=== PATIENT | female | born 1985 | race Caucasian/White ===

== ENCOUNTER 2019-10-23 21:01 | Inpatient (IN) | payer OTHER ==
[~2019-10-23] VITALS: Ht 162.6 cm; Wt 57.8 kg
[2019-10-23 22:09] LABS: ABSOLUTE NEUTROPHILS 12.3 thou/uL (1.4-8.2); BASOPHILS 0.5 % (0.0-2.0); EOSINOPHILS 0.1 % (0.0-3.0); HEMATOCRIT 42.7 % (37.0-47.0); HEMOGLOBIN 13.9 gm/dL (12.0-15.0); MCH 31.8 pg (26.0-34.0); MCHC 32.7 g/dL (28.0-37.0); MCV 97.3 fL (80.0-100.0); MONOCYTES 5.9 % (1.0-8.0); PLATELET COUNT 306 thou/uL (150-400); POLYS 80.5 % (36.0-66.0); RBC 4.38 mil/uL (4.20-5.00); RDW 12.8 % (10.5-14.5); WBC 15.3 thou/uL (4.0-11.0)
[2019-10-23 22:17] LABS: ANION GAP 15 mmol/L (7-16); BUN 8 mg/dL (7-18); CALCIUM 9.2 mg/dL (8.5-10.1); CHLORIDE 103 mmol/L (98-107); CO2 22 mmol/L (21-32); GLUCOSE 136 mg/dL (74-106); POTASSIUM 4.5 mmol/L (3.5-5.1); SODIUM 140 mmol/L (136-145)
--- NOTE | 2019-10-23 22:18 | NUR ---
PATIENT INTUABTED 7.0 TUBE, 26 @ TEETH, +COLOR CHANGE, SOUNDS OVER EPIGASTRIC AREA, TUBE REMOVED 2219 - PATIENT INTUBATED 6.5 TUBE, 23CM @ TEETH, +COLOR CHANGE, XRAY CONFIRMED PLACEMENT
[2019-10-23 22:21] LABS: ALBUMIN 4.3 g/dL (3.4-5.0); AMP/METHAMP POSITIVE (Negative); BARBITURATES Negative (Negative); BENZODIAZEPINES Negative (Negative); COCAINE Negative (Negative); DIRECT BILIRUBIN < 0.1 mg/dL (<0.1-0.2); LIPASE 94 U/L (73-393); METHADONE Negative (Negative); OPIATES Negative (Negative); PCP Negative (Negative); SALICYLATE 8.3 mg/dL (2.8-20.0); SGOT 12 U/L (15-37); SGPT 20 U/L (30-65); TOTAL BILIRUBIN 0.2 mg/dL (<0.1-1.0); TOTAL PROTEIN 7.7 g/dL (6.4-8.2)
[2019-10-23 22:54] LABS: BE(vivo) -10.8 mmol/L (-2 to +3); HCO3 20.6 mmol/L (22.0-26.0); PO2 418.1 mmHg (80.0-100.0); sO2 99.7 % (92.0-98.0)
[2019-10-23 22:55] LABS: PCO2 75.4 mmHg (35.0-45.0); pH 7.055 (7.360-7.450)
[2019-10-24] VITALS (26 sets, daily range): BP systolic 109–151; BP diastolic 79–101
[2019-10-24 00:15] LABS: BE(vivo) -7.9 mmol/L (-2 to +3); HCO3 17.9 mmol/L (22.0-26.0); PCO2 37.8 mmHg (35.0-45.0); PO2 224.7 mmHg (80.0-100.0); sO2 99.4 % (92.0-98.0)
[2019-10-24 00:16] LABS: pH 7.294 (7.360-7.450)
--- NOTE | 2019-10-24 05:30 | NUR ---
PT ARRIVED IN ICU FROM ER AT 0245. PT INTUBATED AND ON VENT. SEDATED WITH PROPOFOL AND VERSED GTTS. ABX STARTED. PT SOMEWHAT RESTLESS UPON ARRIVAL, BUT HAS BEEN CALM ON SEDATION SINCE. NO SIGNIFICANT CHANGES SINCE ARRIVAL IN ICU. WILL CONTINUE TO MONITOR.
[2019-10-24 08:28] LABS: HEMATOCRIT 37.6 % (37.0-47.0); HEMOGLOBIN 12.4 gm/dL (12.0-15.0); MCH 32.2 pg (26.0-34.0); MCHC 33.1 g/dL (28.0-37.0); MCV 97.4 fL (80.0-100.0); RBC 3.85 mil/uL (4.20-5.00)
[2019-10-24 08:53] LABS: ALBUMIN 3.2 g/dL (3.4-5.0); CALCIUM 8.2 mg/dL (8.5-10.1); CREATININE 0.8 mg/dL (0.6-1.0); TOTAL BILIRUBIN 0.2 mg/dL (<0.1-1.0); TOTAL PROTEIN 5.7 g/dL (6.4-8.2)
[2019-10-24 08:54] LABS: POTASSIUM 3.4 mmol/L (3.5-5.1)
[2019-10-24 11:27] LABS: BE(vivo) -3.4 mmol/L (-2 to +3); HCO3 19.8 mmol/L (22.0-26.0); PCO2 30.1 mmHg (35.0-45.0); PO2 174.8 mmHg (80.0-100.0); pH 7.436 (7.360-7.450); sO2 99.3 % (92.0-98.0)
--- NOTE | 2019-10-24 11:33 | NUR ---
Nutrition: When appropriate, rec initiate tube feeds within 24-48 hrs, Vital HP at 40 mL/hr with current propofol rate will meet ~100% of needs.
--- NOTE | 2019-10-24 13:17 | NUR ---
patient admits from being in car in someones driveway not responsive. Brought to [facility] admitted to ICU, intubated and sedated. Retrieved drivers liceanse and called [facility] police dept and left message if can notify any next of kin. Updated RN. patient positive for meth. Casemgt following.
--- NOTE | 2019-10-24 19:37 | NUR ---
PATIENT REMAINS INTUBATED AND SEDATED. AFEBRILE FOR ME THIS SHIFT. REQUIRES A LOT OF SEDATION TO KEEP RESTING. PATIENT HAD LOW OUT PUT FOR THE FIRST 6 HOURS OF MY SHIFT ONLY HAVING 50ML OF URINE OUT. DR IBARRA NOTIFIED AND ORDERS RECIEVED. PATIENT URINE OUT PUT INCREASED AND NOW HAS HAD 1150 OUT. NO FURTHER ISSUES AT THIS TIME. WILL CONTINEU TO MONITOR AND CARE PER PLAN OF CARE.
[2019-10-25] VITALS (37 sets, daily range): BP systolic 114–160; BP diastolic 62–113
--- NOTE | 2019-10-25 04:22 | NUR ---
NO OVERNIGHT EVENTS. PT. RESTED COMFORTABLEY WITH MODERATE SEDATION. NO SIGNS OF AGITATION THROUGHOUT SHIFT. PT. IS NOT FOLLOWING COMMANDS OR TRACKING. ASSESSMENTS AND VITAL SIGNS CHARTED. MEDICATION TITRATION CHARTED. PT. SLOWLY PROGRESSING TOWARDS GOALS. CONTINUE TO FOLLOW POC. PT. WILL NOT CPAP TODAY. WILL CONTINUE TO MONITOR.
[2019-10-25 05:08] LABS: BASOPHILS 0.8 % (0.0-2.0); EOSINOPHILS 1.2 % (0.0-3.0); HEMOGLOBIN 12.6 gm/dL (12.0-15.0); LYMPHOCYTES 36.3 % (24.0-44.0); MCH 32.3 pg (26.0-34.0); MCV 97.8 fL (80.0-100.0); MONOCYTES 11.5 % (1.0-8.0); PLATELET COUNT 184 thou/uL (150-400); POLYS 50.2 % (36.0-66.0); RBC 3.89 mil/uL (4.20-5.00)
[2019-10-25 05:10] LABS: BE(vivo) -3.2 mmol/L (-2 to +3); HCO3 20.9 mmol/L (22.0-26.0); PCO2 34.4 mmHg (35.0-45.0); PO2 124.1 mmHg (80.0-100.0); pH 7.402 (7.360-7.450); sO2 98.5 % (92.0-98.0)
[2019-10-25 05:18] LABS: CALCIUM 7.7 mg/dL (8.5-10.1); CREATININE 0.5 mg/dL (0.6-1.0); POTASSIUM 3.1 mmol/L (3.5-5.1)
[2019-10-25 12:24] LABS: BE(vivo) -3.9 mmol/L (-2 to +3); HCO3 20.9 mmol/L (22.0-26.0); PO2 104.3 mmHg (80.0-100.0); pH 7.369 (7.360-7.450); sO2 97.7 % (92.0-98.0)
--- NOTE | 2019-10-25 13:00 | NUR ---
PT RT EXTUBATED AND ABG NOTIFIED TO DR. BROWNING. PT IS CONFUSED. KEEPS TAKING MONITOR AND LEADS OFF AND REMOVING OXYGEN ON AT 3 LITERS NASAL CANULA. REMAINS IN RESTRAINTS AT THIS TIME PT IS VERY CONFUSED AT THIS TIME. REORIENTEATION GIVEN TO PT TO HELP PER NURSING. COMPLAINS OF SORE THROAT. NPO AT THIS TIME.
--- NOTE | 2019-10-25 14:36 | NUR ---
PT THINKS SHE IS AT HER MOTHERS HOUSE REFUSING TO LEAVE HER OXYGEN ON AND TAKING IT OFF AND MONITOR LEADS PT TAKING OFF TOO. EXPLAIN TO PT ORIENTATION. ACCORDING TO HER THIS IS NOT A HOSPITAL. VERY CONFUSED AT THIS TIME. REMAINS IN RESTRAINTS AT THIS TIME.
--- NOTE | 2019-10-25 18:38 | NUR ---
PT REMIANS VERY CONFUSED BIT THROUGH IV TUBING EARLIER. NOW ASKING TO SEE MY BOSS. CHARGE NURSE NOFIFIED.
--- NOTE | 2019-10-25 18:45 | NUR ---
PT BECOME MORE AND MORE AGITATED. STATES HER ALEJANDRO IS . THAT SHE TRIED TO COMMIT SUICIDE THE OTHER DAY. SHOUTING ALEJANDRO'S ADDRESS OVER AND OVER AGAIN. SECURITY CALLED AND UPDATED. WILL TRY TO TALK TO PT NEXT TIME SHE WAKES UP. PT HAD PULLED OUT VALERIO, VALERIO REPLACED. EMOTIONAL SUPPORT GIVEN.
--- NOTE | 2019-10-25 20:00 | NUR ---
PT VERY AGITATED. HALDOL 6 MG IV GIVEN PER ORDER. 3 POINT RESTRAINTS
--- NOTE | 2019-10-25 21:00 | NUR ---
PT VERY AGITATED AGAIN. REMAINS ON PRECEDEX GTT 1.4 MCG HALDOL 6 MG IV REPEATED. WILL PAGE DR HARVEY PER ORDER DR BROWNING FOR FURTHER MED ORDERS.
--- NOTE | 2019-10-25 22:08 | NUR ---
PT VERY AGITATED AGAIN. GEODON 10 MG IM GIVEN AND BENADRYL 50 MG IV PER ORDER DR HARVEY. WILL CONT TO MONITOR.
[2019-10-26] VITALS (17 sets, daily range): BP systolic 74–169; BP diastolic 45–93
--- NOTE | 2019-10-26 | NUR ---
PT HAD A RUN OF VTACH. SEE MONITOR STRIP. DR HARVEY NOTIFIED. REMAINS ON PRECEDEX GTT. CONT TO HAVE PERIODS OF EXTREME RESTLESSNESS.
[2019-10-26 02:11] LABS: CALCIUM 8.3 mg/dL (8.5-10.1); CREATININE 0.5 mg/dL (0.6-1.0)
--- NOTE | 2019-10-26 03:00 | NUR ---
HAD ANOTHER RUN OF VTACH. KIMBERLY GARMENT LOOPER NOTIFIED. LEFT K AND MG ORDERS
[2019-10-26 04:58] LABS: CALCIUM 8.6 mg/dL (8.5-10.1); CREATININE 0.5 mg/dL (0.6-1.0); POTASSIUM 3.6 mmol/L (3.5-5.1)
[2019-10-26 05:05] LABS: HEMATOCRIT 38.9 % (37.0-47.0); HEMOGLOBIN 12.8 gm/dL (12.0-15.0); MCH 31.9 pg (26.0-34.0); MCHC 32.8 g/dL (28.0-37.0); MCV 97.2 fL (80.0-100.0); RDW 12.9 % (10.5-14.5); WBC 9.9 thou/uL (4.0-11.0)
--- NOTE | 2019-10-26 05:30 | NUR ---
MG 1.5 2 GRAM MG BOLUS HUNG PER ORDER OF Lisa MAIN IP LITIGATION ASSOCIATE. PRECEDEX GTT NOW AT 0.2 MCG. 2300 CC UO THIS SHIFT. MUCH CALMER AT THIS TIME. SINUS RAMYA TO SINUS RHYTHM. LUNGS CLEAR. BATHED. REMAINS RESTRAINED. WILL CONT TO MONITOR.
--- NOTE | 2019-10-26 17:19 | NUR ---
PT IS CONFUSED. BATH DONE TODAY FOR PT. REORIENTATION GIVEN TO PT BUT REMAINS CONFUSED . RESTRATINTS ON PT BILATERAL. PT GAVE ME A NAME AND NUMBER BUT NO CONTACT. LUNGS ARE CLEAR . VITALS STABLE. ON ROOM AIR. VALERIO TO DD WITH CLEAR YELLOW URINE PRESENT. DENIES ANY PAIN ISSUES AT THIS TIME. NO CONERNS NOTED PER NURSING.
--- NOTE | 2019-10-26 22:00 | NUR ---
PT BECAME EXTREMELY AGITATED AND KICKING CONFUSED HALDOL 6 MG IV GIVEN.
[2019-10-27] VITALS (20 sets, daily range): BP systolic 118–162; BP diastolic 64–93
[2019-10-27 05:17] LABS: CALCIUM 8.6 mg/dL (8.5-10.1); CREATININE 0.7 mg/dL (0.6-1.0); POTASSIUM 3.4 mmol/L (3.5-5.1)
--- NOTE | 2019-10-27 06:00 | NUR ---
PT VERY AGITATED AND TRYING TO GET OUT OF BED. BENADRYL IV GIVEN ORDERED.
--- NOTE | 2019-10-27 06:30 | NUR ---
PT RESTING QUIETLY NOW ANSWERS QUESTION APPROP. KNOWS IT IS OCTOBER AND SHE IS IN THE HOSPITAL. HIREN LIQUIDS. BLOOD SUGAR 65 KIMBERLY AUTOMOTIVE TECHNICIAN CALLED REGULAR DIET AND OJ ORDERED. 1400 CC UO THIS SHIFT. REMAINS RESTRAINED AT THIS TIME. WILL CONT TO MONITOR.
--- NOTE | 2019-10-27 09:00 | NUR ---
chart review, pt up in bed with bedside nurse in room. trying breakfast. pt in restraints, cont on iv drip. will cont following as needed for dc needs. psych consulted.
--- NOTE | 2019-10-27 15:09 | NUR ---
spoke with pt mother and sister. pt mother stated that pt just told her that she overdosed on purpose. Pt sister states that pt told her before the fact that she was suicidal.
--- NOTE | 2019-10-27 15:10 | NUR ---
Dr. Nadya lopez.
[2019-10-28] VITALS (15 sets, daily range): BP systolic 116–143; BP diastolic 69–98
[2019-10-28 04:47] LABS: CALCIUM 8.7 mg/dL (8.5-10.1); CREATININE 0.6 mg/dL (0.6-1.0); POTASSIUM 3.4 mmol/L (3.5-5.1)
[2019-10-28 05:23] LABS: HEMOGLOBIN 12.6 gm/dL (12.0-15.0); MCH 32.1 pg (26.0-34.0); MCHC 33.3 g/dL (28.0-37.0); MCV 96.4 fL (80.0-100.0); RBC 3.94 mil/uL (4.20-5.00); RDW 12.7 % (10.5-14.5); WBC 10.2 thou/uL (4.0-11.0)
--- NOTE | 2019-10-28 08:20 | NUR ---
gianluca notified that pt will need inpt psych rt mom reported pt said on purpose and is suicidal. tr 1:[address] marrero to visit. will send referral for inpt psych when pt medically stable for dc. will cont following as needed for dc needs.
--- NOTE | 2019-10-28 14:49 | NUR ---
PT ARRIVED TO FLOOR PER WC FROM ICU AT 1430 IN STABLE CONDITION.PT TOOK SHOWER INDEPENDENTLY.ICE WATER GIVEN PER PT REQUEST.SITTER AT BS AT ALLTIMES.NO VERBAL C/O.WILL CONTINUE TO MONITOR.
--- NOTE | 2019-10-28 15:08 | NUR ---
Pt remained in 1:1 precautions while in ICU - sitter present. Medically stable. Will transfer to med/surg unit. Voiced no complaints. Spoke with sister ruchi, gave pt history and allegery list. Report given to daylin DANIELSON. Pt transfered to room 462 with sitter. Belongings brought to the 4th floor.
--- NOTE | 2019-10-29 03:49 | NUR ---
ASSUMED PT CARE AROUND 1914. AXOX4. 1:1 SITTER PRESENT AT ALL TIMES. DENIES SI AT THIS TIME. VSS. NO S/S ACUTE DISTRESS NOTED OR REPORTED AT THIS TIME. WILL CONT TO MONITOR FOR ANY CHANGES IN CONDITION.
[2019-10-29 08:05] VITALS: BP 133/85
--- NOTE | 2019-10-29 14:29 | NUR ---
PHYSICIAN INDICATED AND DOCUMENTED THAT PT IS MEDICALLY STABLE TO TRANSFER TO INPATIENT PSYCH THIS DAY. CM PREPARED CHART COPY. CM MET WITH PT AT BEDSIDE AND SHE INDICATED THAT SHE IS AGREEABLE TO GOING FOR INPATIENT PSYCH STAY. CM CALLED AND FAXED REFERRAL TO [facility] AT 2:25 AND CALLED [facility] AT 2:37 AWAITING RESPONSE. CM TO FOLLOW INDICATED WITH DC PLANNING.
[2019-10-29 16:42] VITALS: BP 147/96
--- NOTE | 2019-10-29 16:50 | NUR ---
Alert and oriented x4.Pt in and out of bed to Sitter at bs at all times for suicide watch.Assessment completed.vss.Pt tolerated meds and diet.Dr Covington and Cb here.order noted.Dr pleitez pt's sister and mom to visit during this stay.Pt took shower today.Resting in bed at present.No agitation noted .Will continue to monitor.
[2019-10-29 18:56] VITALS: BP 130/98
--- NOTE | 2019-10-29 23:56 | NUR ---
ASSUMED PT CARE AROUND 191. AXOX4. DENIES SI. VSS. NO S/S ACUTE DISTRESS NOTED OR REPORTED AT THIS TIME. CARE TRANSFERRED TO INCOMING RN AT THSI TIME.
--- NOTE | 2019-10-30 02:34 | NUR ---
CONT CARE OF PT @2315 PT RESTING IN BED AND 1:1 SITTER BY BEDSIDE. IV INTACT AND ABX GIVEN. PT REQUESTED BENADRLY STATED HAVING DIFFICULTY FALLING ASLEEP. MEDS GIVEN PT HIREN IT FINE. NO SIGNS OF DISTRESS. Q2 HOURLY CHECK. PT UP ADLIB IN ROOM STEADY GAIT. CALL LIGHT IN PLACE AND WILL CONT TO MONITOR TILL EOS.
[2019-10-30 05:57] LABS: HEMOGLOBIN 12.1 gm/dL (12.0-15.0); MCH 31.5 pg (26.0-34.0); MCHC 32.7 g/dL (28.0-37.0); MCV 96.6 fL (80.0-100.0); RBC 3.83 mil/uL (4.20-5.00); RDW 13.1 % (10.5-14.5); WBC 8.9 thou/uL (4.0-11.0)
[2019-10-30 06:09] LABS: CALCIUM 8.7 mg/dL (8.5-10.1); CREATININE 0.6 mg/dL (0.6-1.0); MAGNESIUM 1.8 mg/dL (1.8-2.4); POTASSIUM 4.5 mmol/L (3.5-5.1)
[2019-10-30 08:46] VITALS: BP 143/105
[2019-10-30 15:45] VITALS: BP 145/104
--- NOTE | 2019-10-30 16:42 | NUR ---
[facility] SERIOUSLY CONSIDERING REFERRAL UPDATEDS AND QUESTIONS ANSWERED. LAST CALL THEY WANTED INFO ON A 9LB OVARIAN TUMOR THAT PT HAD REMOVED BY DR. Lisa SHANKAR AT [facility] IN AUGUST. CM INDICATED THAT WE HAD NO RECORD RECORD RECARDING PROCEDURE OR FOLLOW UP CARES. CM TO SEE ABOUT COMPLETEING RECORD REQUEST. CM TO CHECK WITH [facility]. REFERRAL SENT TO [facility]. AWAITING RESPONSE. PT UPDATED. CM TO FOLLOW INDICATED WITH DC PLANNING.
--- NOTE | 2019-10-30 17:11 | NUR ---
A/O, anxious but cooperative; patient took her IV out, refused to have another IV access, Dr. Vivar is aware; Patient asked to go out for a few minutes and also asked to have boyfriend as a visitor, message was sent to Dr. Covington, no reponse from Dr. Covington yet.
[2019-10-30 19:32] VITALS: BP 141/94
[2019-10-30 20:02] VITALS: BP 151/93
--- NOTE | 2019-10-31 03:47 | NUR ---
Pt became agitated and wanted to leave. stated "she has been cleared" to leave. nurse explained POC. pt stated she has to go back to work in the am. pt has a 1:1 sitter for SI. pt denies SI/HI. pt refused all meds stating that they have been discontinued and she should be allowed to go home. pt has no IV access that was discont yesterday by pt. doctor aware. pt ambulates with steady gait to the bathroom. pt had a shower last night. no s/s of acute distress. will cont to monitor
[2019-10-31 04:23] VITALS: BP 126/80
[2019-10-31 07:16] VITALS: BP 147/81
--- NOTE | 2019-10-31 08:14 | NUR ---
Nutrition: Following for intake trends following recent extubation. Extubated on per EMR. Continues to have a 1:1 sitter at all times. Previous attempted suicide that required intubation to sustain life per MD notes. Not seen today, chart reviewed. Pt deemed medically stable w/ planned transfer to inpatient psychiatry. Pt is at a healthy weight of 127.5# with normal BMI of 21.9 kg/m2. PO intake excellent per 3/5 meal recordings. Eating 75-100% of all 3 meals, plus 100% of AM and PM snacks. No active nutrition concerns at this time, no further interventions indicated. Considered low nutrition risk.
--- NOTE | 2019-10-31 11:41 | NUR ---
Assumed pt care at 7am.Pt in bed very angry and irritated.Sh said she was tired of waiting and wanted to dc home.Assessment completed.Pt refused meds but ate breakfast.Dr Vivar and Nadya notified.Both rounded on pt.Bed available for pt transfer today at [facility].associate program manager to arrange for transport.Sitter at bs at alltimes.Will continue to monitor.
[2019-10-31] MEDS ORDERED: AUGMENTIN 875-1 EACH PO (12:06)
--- NOTE | 2019-10-31 12:41 | NUR ---
CM NOTIFIED THIS AFTERNOON THAT PT IS ACCEPTED AT [facility] THIS DAY. ACCEPTING PHYSICIAN IS DR. SHERMAN. PT IS TO GO TO ROOM 112A. REPORT TO BE CALLED TO . CHART COPY ORDERED. PT IS AWARE AND AGREEABLE. [facility] FORM COMPLETED AND FAXED.
[2019-10-31 12:50] VITALS: BP 128/87
--- NOTE | 2019-10-31 15:33 | EKG ---
[facility] [place] [place] [address] ELECTROCARDIOGRAM REPORT Name: LANI HOANG Room #: 462-P [facility] M.R.#: [id number] Admission: 10/23/19 Attend Phys: Julien Scott MD Discharge: 10/31/19 Date of : 83 Report #: [id number] THIS REPORT FOR: cc: FAM - No family physician/PCP FAM - No family physician/PCP Regino Lovelace MD [facility] THIS REPORT FOR: //name// [facility] ED Test Date: 2019-10-23 Test Time: 22:42:37 Pat Name: LANI HOANG Department: Room: 248 Gender: F Scrap Worker: FRANCISCO : 1985 Requested By: Henry Yu Order Number: [id number] MD: Regino Lovelace Measurements Intervals [place] Rate: 127 P: 81 [place]: 132 QRS: 78 QRSD: 86 T: 16 QT: 282 QTc: 410 Interpretive Statements Sinus tachycardia Right atrial abnormality Nonspecific ST segment abnormality No previous ECG available for comparison Electronically Signed On 10-24-2019 9:43:33 CERTIFIED HYPERBARIC TECHNICIAN by Regino Lovelace [email or web address] <ELECTRONICALLY SIGNED> By: Regino Lovelace MD, FACC 10/24/19 0943 [id number] Regino Lovelace MD, [facility] /EPI
== END 2019-10-31 15:26 | DRG 871 ==
LOC: ER 21:01 → EROBS 22:54 → ICU 22:54 → 4W 10-28 14:18
PROVIDERS: Hospitalist; Internal Medicine; Internal Medicine Pulmonary Disease; Nurse Practitioner; Nurse Practitioner Family; ADMIT Internal Medicine
PROC: 0BH17EZ Insertion of Endotracheal Airway into Trachea, Via Natural or Artificial Opening (ICD-10-PCS; principal; 2019-10-23)
PROC: 5A1945Z Respiratory Ventilation, 24-96 Consecutive Hours (ICD-10-PCS; principal; 2019-10-23)
DX: A41.9 Sepsis, unspecified organism (principal); J96.01 Acute respiratory failure with hypoxia; J96.02 Acute respiratory failure with hypercapnia; G92 Toxic encephalopathy; J69.0 Pneumonitis due to inhalation of food and vomit; F15.921 Other stimulant use, unspecified with intoxication delirium; R45.851 Suicidal ideations; R14.0 Abdominal distension (gaseous); I95.9 Hypotension, unspecified; T43.621A Poisoning by amphetamines, accidental (unintentional), initial encounter; Y92.89 Other specified places as the place of occurrence of the external cause; Z79.899 Other long term (current) drug therapy
CPT/HCPCS: 10040; 10078